=== PATIENT | male | born 1980 | race Caucasian/White ===

== ENCOUNTER 2018-02-01 02:07 | Emergency (ER) | payer SELFPAY ==
[2018-02-01 03:09] VITALS: BMI 33.4
[2018-02-01] MEDS ORDERED: SODIUM CHLORIDE 1,000 ML IV STA (04:57)
--- NOTE | 2018-02-01 04:57 | PDOC ---
History of Present Illness - History of Present Illness Initial Comments: Patient is a 37 year old israeli-speaking male, who presents to the ED complaining of 2 days of tactile fever, vomiting, body aches, and dizziness. Patient explains that his symptoms began when he suddenly began feeling dizzy while driving. He denies abdominal pain, dysuria, diarrhea, or sore throat. Denies recent travel, sick contacts, or changes in diet Surgical Hx: appendectomy, back surgery (2013) 02/01/18 05:45 <Mariana Kaufman - Last Filed: 02/01/18 06:17> - General History Source: Patient Exam Limitations: No Limitations <Cyndee Das - Last Filed: 02/03/18 16:45> - General Chief Complaint: Nausea/Vomiting Stated Complaint: FEVER, VOMITING Time Seen by Provider: 02/01/18 04:56 Past History <Mariana Kaufman - Last Filed: 02/01/18 06:17> - Suicide/Smoking/Psychosocial Hx Smoking History: Never smoked Have you smoked in the past 12 months: No Information on smoking cessation initiated: No Hx Alcohol Use: No Drug/Substance Use Hx: No <Cyndee Das - Last Filed: 02/03/18 16:45> - Past Medical History Allergies/Adverse Reactions: Allergies Allergy/AdvReac Type Severity Reaction Status Date / Time No Known Allergies Allergy Verified 02/01/18 03:09 Home Medications: Ambulatory Orders NK [No Known Home Medication] 02/01/18 Review of Systems - Review of Systems Comments:: GENERAL/CONSTITUTIONAL: +fever, chills, weakness.. HEAD, EYES, EARS, NOSE AND THROAT: No: change in vision, ear pain, discharge, sore throat, throat swelling. CARDIOVASCULAR: No: chest pain, lightheadedness, palpitations, syncope RESPIRATORY: No: cough, shortness of breath, wheezing, hemoptysis, stridor. GASTROINTESTINAL: +nausea, +vomiting. No: abdominal cramping, diarrhea, rectal bleeding, constipation. GENITOURINARY: No: dysuria, hematuria, frequency, urgency, flank pain. MUSCULOSKELETAL: No: back pain, neck pain, joint pain, muscle swelling or pain SKIN: No: lesions, pallor, rash or easy bruising. NEUROLOGIC: No: headache, vertigo, paresthesias, weakness ENDOCRINE: No: unexplained weight gain or loss HEMATOLOGIC/LYMPHATIC: No: anemia, easy bleeding, swelling nodes 02/01/18 05:46 <Mariana Kaufman - Last Filed: 02/01/18 06:17> *Physical Exam - Vital Signs Last Vital Signs Temp Pulse Resp BP Pulse Ox 102.1 F H 102 H 18 118/72 98 02/01/18 03:07 02/01/18 03:07 02/01/18 03:07 02/01/18 03:07 02/01/18 03:07 - Physical Exam Comments: GENERAL: The patient looks uncomfortable HEAD: Normal with no signs of trauma. EYES: PERRLA, EOMI, b/l conjunctivitis. ENT: Ears normal, nares patent, oropharynx clear without exudates. Moist mucous membranes. NECK: Normal range of motion, supple without lymphadenopathy, JVD, or masses. LUNGS: Breath sounds equal, clear to auscultation bilaterally. No wheezes, and no crackles. HEART:Tachycardic. Regular rate and rhythm, normal S1 and S2 without murmur, rub or gallop. ABDOMEN: Soft, nontender, normoactive bowel sounds. No guarding, no rebound. EXTREMITIES: Normal range of motion, no edema. No clubbing or cyanosis. No erythema, or tenderness. NEUROLOGICAL: Cranial nerves II through XII grossly intact. Normal speech. No focal neurological deficits. MUSCULOSKELETAL: Back nontender to palpation, no CVA tenderness SKIN: Warm, Dry, normal turgor, no rashes or lesions noted. <Mariana Kaufman - Last Filed: 02/01/18 06:17> - Vital Signs Last Vital Signs Temp Pulse Resp BP Pulse Ox 102.1 F H 102 H 18 118/72 98 02/01/18 03:07 02/01/18 03:07 02/01/18 03:07 02/01/18 03:07 02/01/18 03:07 <Cyndee Das - Last Filed: 02/03/18 16:45> ED Treatment Course - LABORATORY CBC & Chemistry Diagram: 02/01/18 05:28 02/01/18 05:28 <Mariana Kaufman - Last Filed: 02/01/18 06:17> - LABORATORY CBC & Chemistry Diagram: 02/01/18 05:28 02/01/18 05:28 <Cyndee Das - Last Filed: 02/03/18 16:45> Medical Decision Making - Medical Decision Making 02/03/18 16:42 Mr Bynum is a 37 yo M who presented to the ER with a complaint of fever, myalgias, nausea Pt has had fevers for 2 days HE has also noted vomiting, dizziness No diarrhea No recent travel No ill contacts No arthropod bites He actually denies abdominal pain Denies dysuria, diarrhea, or sore throat. Surgical Hx: appendectomy, back surgery (2013) On examination: Pt is ill appearing Tachycardiac Lungs are clear No abdominal tenderness at all Will do: LAbs UA CXR Flu swab Hydrate Anti pyretic Re assess Pt signed out to Dr Guadalupe <Cyndee Das - Last Filed: 02/03/18 16:45> *DC/Admit/Observation/Transfer - Attestations Scribe Attestion: 02/01/18 05:49 Documentation prepared by Mariana Kaufman, acting as medical technologist blood bank for Cyndee Das MD. <Mariana Kaufman - Last Filed: 02/01/18 06:17> <Cyndee Das - Last Filed: 02/03/18 16:45> Diagnosis at time of Disposition: Viral syndrome - Discharge Dispostion Disposition: HOME Condition at time of disposition: Fair - Patient Instructions Printed Discharge Instructions: DI for Viral Syndrome, DI for Nausea -- Adult Additional Instructions: As discussed, follow-up with your primary doctor within 2-3 days. Make sure your primary doctor repeats your urine test as you had some blood in your urine test here in the emergency department. Drink plenty of fluids and stay hydrated. Return to the emergency department if you have any new, worsening or concerning symptoms. Print Language: MAORI
[2018-02-01] MEDS ORDERED: ONDANSETRON 4 MG/2 ML VIAL IVPUSH ONE (04:58)
[2018-02-01] MEDS ORDERED: IBUPROFEN 800 MG/8 ML IJ IVPB ONE ×2 (04:58→05:40)
[2018-02-01 05:37] LABS: URINE APPEARANCE CLEAR; URINE BILIRUBIN NEGATIVE (<2.0 mg/dL); URINE COLOR YELLOW; URINE GLUCOSE (UA) NEGATIVE (NEGATIVE); URINE KETONE TRACE (NEGATIVE); URINE LEUK ESTERASE NEGATIVE (NEGATIVE); URINE NITRITE NEGATIVE (NEGATIVE); URINE UROBILINOGEN 4.0 E.U/dl mg/dL (0.2-1.0)
[2018-02-01] MEDS ORDERED: ONDANSETRON 4 MG/2 ML VIAL ONE (05:40)
[2018-02-01 05:47] LABS: BASO % 0.3 % (0-2.0); EOS % 0.1 % (0-4.5); HEMATOCRIT 48.1 % (35.4-49); HEMOGLOBIN 16.4 GM/dL (11.7-16.9); MCH 31.6 pg (25.7-33.7); MCHC 34.1 g/dl (32.0-35.9); MEAN CELL VOLUME 92.9 fl (80-96); MEAN PLT VOLUME 8.6 fl (7.5-11.1); MONO % 17.6 % (3.8-10.2); PLATELET COUNT 197 K/MM3 (134-434); RBC 5.18 M/mm3 (4.00-5.60); RDW 13.3 % (11.9-15.9); WHITE BLOOD COUNT 6.9 K/mm3 (4.0-10.0)
[2018-02-01 05:51] LABS: URINE PROTEIN 1+ (NEGATIVE)
[2018-02-01 05:56] LABS: VENOUS PC02 41.6 mmHg (38-52); VENOUS PH 7.34 (7.32-7.42)
[2018-02-01 05:57] LABS: VENOUS PO2 40.8 mmHg (28-48)
[2018-02-01 05:58] LABS: EPI CELLS RARE /HPF (FEW); URINE MUCUS MODERATE
[2018-02-01 06:02] LABS: INR 1.1 (0.82-1.09); PROTHROMBIN TIME (PATIENT) 12.4 SEC (9.7-13.0)
[2018-02-01 06:05] LABS: ACTIVATED PTT 28.8 SECONDS (26.9-34.4)
[2018-02-01 06:12] LABS: ALK PHOS 129 U/L (45-117); ANION GAP 7 (8-16); BILIRUBIN,TOTAL 0.8 mg/dL (0.2-1.0); BLOOD UREA NITROGEN 18 mg/dL (7-18); CALCIUM 8.7 mg/dL (8.5-10.1); CHLORIDE 106 mmol/L (98-107); CO2 25 mmol/L (21-32); CREATININE 1.2 mg/dL (0.7-1.3); GLUCOSE,RANDOM 94 mg/dL (74-106); POTASSIUM 4.2 mmol/L (3.5-5.1); SGOT/AST 32 U/L (15-37); SGPT/ALT 41 U/L (12-78); SODIUM 138 mmol/L (136-145); TOT PROT 7.3 g/dl (6.4-8.2)
[2018-02-01 07:10] VITALS: BP 111/75; PULSE 80; TEMP 99.5
[2018-02-01 08:05] LABS: AMYLASE 46 U/L (25-115); LIPASE 139 U/L (73-393)
--- NOTE | 2018-02-01 08:13 | PDOC ---
*Physical Exam - Vital Signs Last Vital Signs Temp Pulse Resp BP Pulse Ox 99.5 F 80 16 111/75 100 02/01/18 07:10 02/01/18 07:10 02/01/18 07:10 02/01/18 07:10 02/01/18 07:10 - Physical Exam Comments: 02/01/18 08:07 Care received at 0700 Briefly, pt presents with fever, vomiting, body aches, and lightheadedness Work up reveals mild leukocytosis, otherwise normal labs UA with RBCs but no evidence of infection CXR clear on my read Likely viral syndrome Pt feels better, tolerating PO and requesting DC Pt has PMD to follow up with, advised him to have a rpt UA due to blood in the urine here. Is clinicially well appearing, rpt vitals wnl - will DC I discussed the physical exam findings, ancillary test results and final diagnoses with the patient. I answered all of the patient's questions. The patient was satisfied with the care received and felt comfortable with the discharge plan and treatment plan. The patient will call their primary care physician within 24 hours to arrange follow-up and will return to the Emergency Department with any new, persistent or worsening symptoms. ED Treatment Course - LABORATORY CBC & Chemistry Diagram: 02/01/18 05:28 02/01/18 05:28 - ADDITIONAL ORDERS Additional order review: Laboratory Results 02/01/18 02/01/18 02/01/18 05:28 05:28 05:28 PT with INR INR PTT (Actin FS) VBG pH 7.34 POC VBG pCO2 41.6 POC VBG pO2 40.8 Mixed VBG HCO3 22.0 Sodium 138 Potassium 4.2 Chloride 106 Carbon Dioxide 25 Anion Gap 7 L BUN 18 Creatinine 1.2 Creat Clearance w eGFR > 60 Random Glucose 94 Lactic Acid 0.8 Calcium 8.7 Total Bilirubin 0.8 AST 32 ALT 41 Alkaline Phosphatase 129 H Total Protein 7.3 Albumin 4.0 Urine Color Urine Appearance Urine pH Ur Specific [place] Urine Protein Urine Glucose (UA) Urine Ketones Urine Blood Urine Nitrite Urine Bilirubin Urine Urobilinogen Ur Leukocyte Esterase Urine WBC (Auto) Urine RBC (Auto) Ur Epithelial Cells Urine Mucus 02/01/18 02/01/18 05:28 05:20 PT with INR 12.40 INR 1.10 PTT (Actin FS) 28.8 VBG pH POC VBG pCO2 POC VBG pO2 Mixed VBG HCO3 Sodium Potassium Chloride Carbon Dioxide Anion Gap BUN Creatinine Creat Clearance w eGFR Random Glucose Lactic Acid Calcium Total Bilirubin AST ALT Alkaline Phosphatase Total Protein Albumin Urine Color Yellow Urine Appearance Clear Urine pH 6.0 Ur Specific [place] 1.029 Urine Protein 1+ H Urine Glucose (UA) Negative Urine Ketones Trace H Urine Blood 1+ H Urine Nitrite Negative Urine Bilirubin Negative Urine Urobilinogen 4.0 e.u/dl Ur Leukocyte Esterase Negative Urine WBC (Auto) 2 Urine RBC (Auto) 54 Ur Epithelial Cells Rare Urine Mucus Moderate 02/01/18 05:28 RBC 5.18 MCV 92.9 MCHC 34.1 RDW 13.3 MPV 8.6 Neutrophils % 61.0 Lymphocytes % 21.0 Monocytes % 17.6 H Eosinophils % 0.1 Basophils % 0.3 - Medications Given in the ED: ED Medications Discontinued Medications Generic Name Dose Route Start Last Admin Trade Name Freq PRN Reason Stop Dose Admin Sodium Chloride 1,000 mls @ 1,000 mls/hr 02/01/18 04:57 02/01/18 05:36 Normal Saline - IV 02/01/18 05:56 1,000 mls/hr ASDIR STA Administration Ibuprofen 800 mg 02/01/18 04:58 02/01/18 05:48 Caldolor Injection - IVPB 02/01/18 04:59 800 mg ONCE ONE Administration Ondansetron HCl 4 mg 02/01/18 04:58 02/01/18 05:48 Zofran Injection IVPUSH 02/01/18 04:59 4 mg ONCE ONE Administration *DC/Admit/Observation/Transfer Diagnosis at time of Disposition: Viral syndrome - Discharge Dispostion Disposition: HOME Condition at time of disposition: Fair Decision to Admit order: No - Referrals - Patient Instructions Printed Discharge Instructions: DI for Nausea -- Adult, DI for Viral Syndrome Additional Instructions: As discussed, follow-up with your primary doctor within 2-3 days. Drink plenty of fluids and stay hydrated. Return to the emergency department if you have any new, worsening or concerning symptoms. - Post Discharge Activity - Attestations Physician Attestion: 02/01/18 08:14 I, Dr. Brandyn Guadalupe MD, attest that this document has been prepared under my direction and personally reviewed by me in its entirety. I further attest, that it accurately reflects all work, treatment, procedures and medical decision -making performed by me.
== END 2018-02-01 08:45 | disposition home or self-care (01) ==
LOC: JER 02:07
PROC: 3E033GC Introduction of Other Therapeutic Substance into Peripheral Vein, Percutaneous Approach (ICD-10-PCS; principal; 2018-02-01)
PROC: 3E0337Z Introduction of Electrolytic and Water Balance Substance into Peripheral Vein, Percutaneous Approach (ICD-10-PCS; 2018-02-01)
DX: B34.9 Viral infection, unspecified (principal)
CPT/HCPCS: 36415; 71045-TC-FY; 80053; 81003; 81015; 82150; 82803; 83605; 83690; 85025; 85610; 85730; 87040; 87086; 87804; 99282-25; J7030

== ENCOUNTER 2018-03-29 09:47 | Emergency (ER) | payer SELFPAY ==
[2018-03-29 09:59] VITALS: BP 124/70; PULSE 67; TEMP 98.5; BMI 34.8
[2018-03-29] MEDS ORDERED: KETOROLAC TROMETHAMINE 30 MG/1 ML VIAL IM ONE (10:33)
[2018-03-29] MEDS ORDERED: KETOROLAC TROMETHAMINE 60 MG/2 ML VIAL ONE (10:46)
--- NOTE | 2018-03-29 10:58 | PDOC ---
History of Present Illness - General Chief Complaint: Back Pain Stated Complaint: BACK PAIN Time Seen by Provider: 03/29/18 10:23 - History of Present Illness Initial Comments: 03/29/18 10:34 CHIEF COMPLAINT: back pain HISTORY OF PRESENT ILLNESS: 37 yo M with no PMH presents to fast track with low back pain. Patient states he [place] "[place]" [place] and recently he has had some exacerbation of the pain radiating to his left leg. He denies any loss of bowel or bladder function, loss of sensation to b/l LE, and is fully ambulatory. PAST MEDICAL HISTORY: Denies past medical history FAMILY HISTORY: Denies SOCIAL HISTORY: Denies tobacco, alcohol, illicit drug use. SURGICAL HISTORY: Denies ALLERGIES: No known drug allergies REVIEW OF SYSTEMS General/Constitutional: Denies fever or chills. Denies weakness, weight change. HEENT: Denies change in vision. Denies ear pain or discharge. Denies sore throat. Cardiovascular: Denies chest pain or shortness of breath. Respiratory: Denies cough, wheezing, or hemoptysis. Gastrointestinal: Denies nausea, vomiting, diarrhea or constipation. Denies rectal bleeding. Genitourinary: Denies dysuria, frequency, or change in urination. Musculoskeletal: Low back pain radiating to left leg. Skin and breasts: Denies rash or easy bruising. Neurologic: Denies headache, vertigo, loss of consciousness, or loss of sensation. PHYSICAL EXAM General Appearance: Well-appearing, appropriately dressed. No apparent distress. HEENT: EOMI, PERRLA. No conjunctival pallor. No photophobia, scleral icterus. Respiratory/Chest: Lungs CTAB. Cardiovascular: RRR. S1, S2. Gastrointestinal/Abdominal: Normal bowel sounds. Abdomen soft, non-distended. No tenderness or rebound tenderness. No organomegaly, pulsatile mass, guarding , hernia, hepatomegaly, splenomegaly. Musculoskeletal/Extremities: Left paraverterbral muscle spasm at L3-L5. Normal inspection. FROM of all extremities, normal capillary refill. Pelvis Stable. No CVA tenderness. No tenderness to extremities, pedal edema, swelling, erythema or deformity. Integumentary: Appropriate color, dry, warm. No cyanosis, erythema, jaundice or rash Neurologic: inspector open die II-XII intact. Fully oriented, alert. Appropriate mood/affect. Motor strength 5/5. No appreciable EOM palsy, facial droop or sensory deficit. Past History - Past Medical History Allergies/Adverse Reactions: Allergies Allergy/AdvReac Type Severity Reaction Status Date / Time No Known Allergies Allergy Verified 03/29/18 09:56 Home Medications: Ambulatory Orders Cyclobenzaprine HCl 10 mg PO HS PRN #10 tablet 03/29/18 Diclofenac Sodium 50 mg PO BID #20 tablet. 03/29/18 COPD: No - Surgical History Appendectomy: Yes - Immunization History Immunization Up to Date: No - Suicide/Smoking/Psychosocial Hx Smoking History: Never smoked Have you smoked in the past 12 months: No Hx Alcohol Use: No Drug/Substance Use Hx: No Substance Use Type: None *Physical Exam - Vital Signs Last Vital Signs Temp Pulse Resp BP Pulse Ox 98.5 F 67 18 124/70 99 03/29/18 09:56 03/29/18 09:56 03/29/18 09:56 03/29/18 09:56 03/29/18 09:56 *DC/Admit/Observation/Transfer Diagnosis at time of Disposition: Low back pain - Discharge Dispostion Disposition: HOME Condition at time of disposition: Stable Decision to Admit order: No - Prescriptions Prescriptions: Cyclobenzaprine HCl 10 mg PO HS PRN #10 tablet PRN Reason: Back Pain Diclofenac Sodium 50 mg PO BID #20 tablet.dr - Referrals Referrals: Rafael Rowe MD [Staff Physician] - - Patient Instructions Printed Discharge Instructions: DI for Low Back Pain Additional Instructions: Please take medications as prescribed; do NOT drink alcohol, drive, or operate machinery while taking cyclobenzaprine. If you develop any loss of sensation to your legs, loss of bowel or bladder function, or are unable to walk, please return to the ER immediately. Por favor tome los medicamentos segn lo recetado; NO tome alcohol, conduzca ni maneje maquinaria mientras scottie cyclobenzaprine. Si presenta prdida de sensibilidad en las piernas, prdida de la funcin intestinal o de la vejiga o no puede caminar, regrese a la tru de emergencias inmediatamente. - Post Discharge Activity Forms/Work/School Notes: Back to Work
== END 2018-03-29 11:06 | disposition home or self-care (01) ==
LOC: JERFT 09:47
PROC: 3E0233Z Introduction of Anti-inflammatory into Muscle, Percutaneous Approach (ICD-10-PCS; principal; 2018-03-29)
DX: M54.5 Low back pain (principal)
CPT/HCPCS: 99281-25

== ENCOUNTER 2019-07-17 09:24 | Emergency (ER) | payer SELFPAY ==
[2019-07-17 09:42] VITALS: BP 114/66; PULSE 64; TEMP 98.5; BMI 34.9
[2019-07-17] MEDS ORDERED: METHOCARBAMOL 500 MG TABLET PO ONE (10:04)
[2019-07-17] MEDS ORDERED: KETOROLAC TROMETHAMINE 60 MG/2 ML VIAL IM ONE (10:04)
[2019-07-17] MEDS ORDERED: KETOROLAC TROMETHAMINE 60 MG/2 ML VIAL ONE (10:06)
[2019-07-17] MEDS ORDERED: METHOCARBAMOL 500 MG TABLET ONE (10:06)
[2019-07-17] MEDS ORDERED: LIDOCAINE 5% TOPICAL PATCH TP ONE (10:15)
[2019-07-17] MEDS ORDERED: LIDOCAINE 5% TOPICAL PATCH ONE (10:16)
--- NOTE | 2019-07-17 10:19 | PDOC ---
History of Present Illness - General Chief Complaint: Back Pain Stated Complaint: LOWER BACK PAIN Time Seen by Provider: 07/17/19 10:01 History Source: Patient Exam Limitations: Clinical Condition - History of Present Illness Initial Comments: 07/17/19 10:16 Patient with past medical history of herniated disc status post lumpectomy 3 years ago for sciatica presented with complaint of 3-day history of worsening right lower back pain which has been worsening and not improving with Aleve. 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 Denies numbness or tingling sensation. Denies urinary or fecal incontinence. Denies saddle paresthesia. Patient reported increased pain when getting up from sitting position Occurred: reports: other (3 days) Severity: reports: moderate Pain Location: reports: back Past History - Past Medical History Allergies/Adverse Reactions: Allergies Allergy/AdvReac Type Severity Reaction Status Date / Time No Known Allergies Allergy Verified 07/17/19 09:39 Home Medications: Ambulatory Orders Cyclobenzaprine HCl 10 mg PO HS PRN #10 tablet 03/29/18 Diclofenac Sodium 50 mg PO BID #20 tablet. 03/29/18 Lidocaine Patch Removal [Lidoderm Patch Removal] 1 each MC DAILY PRN #30 each Methocarbamol [Robaxin -] 500 mg PO TID PRN #21 tablet 07/17/19 Naproxen 500 mg PO BID PRN #20 tablet 07/17/19 COPD: No - Surgical History Appendectomy: Yes - Immunization History Immunization Up to Date: No - Psycho Social/Smoking Cessation Hx Smoking History: Never smoked Have you smoked in the past 12 months: No Hx Alcohol Use: No Drug/Substance Use Hx: No Substance Use Type: None Review of Systems - Review of Systems Able to Perform ROS?: Yes Is the patient limited German proficient: No Constitutional: No: Malaise, Weakness HEENTM: No: Symptoms Reported Respiratory: No: Symptoms reported Cardiac (ROS): No: Symptoms Reported ABD/GI: No: Symptoms Reported : No: Symptoms Reported, Burning, Dysuria, Discharge, Frequency, Urgency, Testicular Mass, Testicular Swelling, Testicular Pain Musculoskeletal: Yes: Symptoms Reported, See HPI, Back Pain (right lower back), Muscle Pain (lower back pain). No: Muscle Weakness Integumentary: No: Symptoms Reported Neurological: No: Symptoms reported, Numbness, Paresthesia, Tingling All Other Systems: Reviewed and Negative *Physical Exam - Vital Signs Last Vital Signs Temp Pulse Resp BP Pulse Ox 98.5 F 64 18 114/66 100 07/17/19 09:40 07/17/19 09:40 07/17/19 09:40 07/17/19 09:40 07/17/19 09:40 - Physical Exam Comments: 07/17/19 10:25 GENERAL: Well developed, well nourished. Awake and alert in moderate acute distress. CARDIOVASCULAR: Regular rate and rhythm. No murmurs, rubs, or gallops. PULMONARY: No evidence of respiratory distress. MUSCULOSKELETAL : mild tenderness over posterior paravertebral muscle of lumbosacral spine of L3-S1 on right sides. No bony deformities SKIN: Warm and dry. Normal capillary refill. NEUROLOGICAL: Alert, awake, appropriate. No motor deficits in the lower extremities. Gait is normal without ataxia. PSYCHIATRIC: Cooperative. Good eye contact. Appropriate mood and affect. General Appearance: Yes: Nourished, Appropriately Dressed, Apparent Distress, Moderate Distress ED Treatment Course - Medications Given in the ED: ED Medications Discontinued Medications Generic Name Dose Route Start Last Admin Trade Name Freq PRN Reason Stop Dose Admin Ketorolac Tromethamine 60 mg 07/17/19 10:04 07/17/19 10:13 Toradol Injection - IM 07/17/19 10:05 60 mg ONCE ONE Administration Methocarbamol 500 mg 07/17/19 10:04 07/17/19 10:13 Robaxin - PO 07/17/19 10:05 500 mg ONCE ONE Administration Medical Decision Making - Medical Decision Making 07/17/19 10:18 Patient with past medical history of herniated disc status post lumpectomy 3 years ago for sciatica presented with complaint of 3-day history of worsening right lower back pain which has been worsening and not improving with Aleve. 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 Denies numbness or tingling sensation. Denies urinary or fecal incontinence. Denies saddle paresthesia. Patient reported increased pain when getting up from sitting position Exam significant for moderate tenderness to right paravertebral muscle of lower lumbosacral spine of L3-S1 which is worse with external rotation of the hip to the left. Symptoms likely back spasm. Toradol 60 mg IM ordered for pain and Robaxin 500 mg ordered for spasm. Topical lidocaine patch ordered for pain. Patient stable for discharge on Robaxin. For spasm and p.o. Toradol as needed for pain with orthopedic spine follow-up Discharge - Discharge Information Problems reviewed: Yes Clinical Impression/Diagnosis: Low back pain Qualifiers: Chronicity: chronic Back pain laterality: right Sciatica presence: without sciatica Qualified Code(s): M54.5 - Low back pain Condition: Improved Disposition: HOME - Admission No - Additional Discharge Information Prescriptions: Lidocaine Patch Removal [Lidoderm Patch Removal] 1 each MC DAILY PRN #30 each PRN Reason: Back Pain Methocarbamol [Robaxin -] 500 mg PO TID PRN #21 tablet PRN Reason: Back Pain Naproxen 500 mg PO BID PRN #20 tablet PRN Reason: Back Pain - Follow up/Referral Referrals: Jose Jones MD, [facility] [Staff Physician] - - Patient Discharge Instructions Patient Printed Discharge Instructions: DI for Back Spasm, DI for Lumbar Radiculopathy Additional Instructions: Take prescribed medication as needed for pain and spasm. Apply hot compress to low back 2-3 times a day as needed for pain. Follow-up with referred orthopedic radiological health specialist if no improvement in 3 days for possible MRI - Post Discharge Activity
[2019-07-17] MEDS ORDERED: LIDOCAINE PATCH REMOVAL MC SCH (22:00)
== END 2019-07-17 10:42 | disposition home or self-care (01) ==
LOC: JERFT 09:24
PROC: 3E0233Z Introduction of Anti-inflammatory into Muscle, Percutaneous Approach (ICD-10-PCS; principal; 2019-07-17)
DX: M54.5 Low back pain (principal); Z87.39 Personal history of other diseases of the musculoskeletal system and connective tissue
CPT/HCPCS: 99282-25

== ENCOUNTER 2019-08-30 14:39 | Emergency (ER) | payer SELFPAY ==
[2019-08-30 14:43] VITALS: BP 123/76; PULSE 100; TEMP 98; BMI 36.1
--- NOTE | 2019-08-30 15:48 | PDOC ---
History of Present Illness - General Chief Complaint: Ingrown toenail Stated Complaint: PAIN Time Seen by Provider: 08/30/19 15:17 History Source: Patient - History of Present Illness Initial Comments: 08/30/19 15:47 38 year old male c/o left 2nd toe nail infection and swelling for the last 3 days. denies fever/ chills. reports cutting toe nails short 08/30/19 15:54 Past History - Past Medical History Allergies/Adverse Reactions: Allergies Allergy/AdvReac Type Severity Reaction Status Date / Time No Known Allergies Allergy Verified 08/30/19 14:43 Home Medications: Ambulatory Orders Cyclobenzaprine HCl 10 mg PO HS PRN #10 tablet 03/29/18 Diclofenac Sodium 50 mg PO BID #20 tablet. 03/29/18 Lidocaine Patch Removal [Lidoderm Patch Removal] 1 each MC DAILY PRN #30 each Methocarbamol [Robaxin -] 500 mg PO TID PRN #21 tablet 07/17/19 Naproxen 500 mg PO BID PRN #20 tablet 07/17/19 COPD: No - Surgical History Appendectomy: Yes - Immunization History Immunization Up to Date: No - Psycho Social/Smoking Cessation Hx Smoking History: Never smoked Have you smoked in the past 12 months: No Hx Alcohol Use: No Drug/Substance Use Hx: No Substance Use Type: None Review of Systems - Review of Systems Able to Perform ROS?: Yes Is the patient limited Welsh proficient: No Integumentary: Yes: Other (toenail pain) *Physical Exam - Vital Signs Last Vital Signs Temp Pulse Resp BP Pulse Ox 98 F 100 H 18 123/76 99 08/30/19 14:40 08/30/19 14:40 08/30/19 14:40 08/30/19 14:40 08/30/19 14:40 - Physical Exam General Appearance: Yes: Appropriately Dressed Extremity: positive: Other (left 2nd toe nail swelling. with erythema) Integumentary: positive: Normal Color, Dry, Warm Neurologic: positive: Fully Oriented, Alert, Normal Mood/Affect ED Progress Note - Progress Note Progress Note: 08/30/19 15:55 A: paronychia of toes P: drained a small amount of serous fluid Discharge - Discharge Information Problems reviewed: Yes Clinical Impression/Diagnosis: Paronychia of toe of left foot Disposition: HOME - Follow up/Referral Referrals: Alon Grossman DPM [Staff Physician] - Call tomorrow Moy Carrizales DPM [Staff Physician] - Call tomorrow - Patient Discharge Instructions Patient Printed Discharge Instructions: DI for Ingrown Toenail Additional Instructions: soak with warm water three to four times daily follow up with an registered dietetic technician as soon as possible take antibiotics as prescribed remojar con agua tibia swathi o cuatro veces al da seguimiento con un podlogo lo antes posible carson antibiticos segn lo prescrito - Post Discharge Activity Work/Back to School Note: Back to Work
== END 2019-08-30 16:23 | disposition home or self-care (01) ==
LOC: JERFT 14:39
PROC: 0J9R0ZZ Drainage of Left Foot Subcutaneous Tissue and Fascia, Open Approach (ICD-10-PCS; principal; 2019-08-30)
DX: L03.032 Cellulitis of left toe (principal)
CPT/HCPCS: 99281-25

== ENCOUNTER 2020-04-21 11:10 | Emergency (ER) | payer OTHER ==
--- NOTE | 2020-04-21 11:21 | PDOC ---
Rapid Medical Evaluation Time Seen by Provider: 04/21/20 11:20 Medical Evaluation: Allergies Allergy/AdvReac Type Severity Reaction Status Date / Time No Known Allergies Allergy Verified 08/30/19 14:43 04/21/20 11:20 I have performed a brief in-person evaluation of this patient. The patient presents with a chief complaint of:L elbow pain, no trauma but states he lifts his daughter a lot. No pmhx Pertinent physical exam findings:stable I have ordered the following:nothing The patient will proceed to the ED for further evaluation. Discharge Disposition - Diagnosis Elbow pain Qualifiers: Laterality: left Qualified Code(s): M25.522 - Pain in left elbow - Referrals - Patient Instructions - Post Discharge Activity
[2020-04-21 11:22] VITALS: BP 109/76; PULSE 65; BMI 34.0
--- NOTE | 2020-04-21 11:55 | PDOC ---
History of Present Illness - General Chief Complaint: Pain Stated Complaint: LT ELBOW PAIN Time Seen by Provider: 04/21/20 11:20 - History of Present Illness Initial Comments: 04/21/20 11:52 39-year-old male without comorbidities presents for evaluation of atraumatic left elbow pain x1 week after heavy lifting Past History - Medical History Allergies/Adverse Reactions: Allergies Allergy/AdvReac Type Severity Reaction Status Date / Time No Known Allergies Allergy Verified 04/21/20 11:21 COPD: No - Surgical History Appendectomy: Yes - Immunization History Immunization Up to Date: No - Psycho-Social/Smoking History Smoking History: Never smoked Have you smoked in the past 12 months: No - Substance Abuse Hx (Audit-C & DAST Scrn) How often the patient has a drink containing alcohol: Never Score: In Men: 4 or > Positive; In Women: 3 or > Positive: 0 Screen Result (Pos requires Nsg. Audit-10AR): Negative In the last yr the pt used illegal drug/Rx for NonMed reason: No Score: Yes response is considered Positive: 0 Screen Result (Positive result requires Nsg. DAST-10): Negative Review of Systems - Review of Systems Constitutional: No: Chills, Fever, Night Sweats Musculoskeletal: Yes: Joint Pain *Physical Exam - Vital Signs Last Vital Signs Temp Pulse Resp BP Pulse Ox 65 18 109/76 98 04/21/20 11:21 04/21/20 11:21 04/21/20 11:21 04/21/20 11:21 - Physical Exam 04/21/20 11:52 Left elbow skin color and temperature normal range of motion is full and painful at terminal extension. Tenderness over the lateral epicondyle no other areas of tenderness no detectable instability pain increased over the lateral epicondyle with resisted wrist flexion. Normal range of motion of the forearm wrist and shoulder. Neurovascular intact no gross sensorimotor deficits. ED Treatment Course - RADIOLOGY Radiology Studies Ordered: Category Date Time Status ELBOW-LEFT [RAD] Stat Radiology 04/21/20 11:30 Taken Medical Decision Making - Medical Decision Making 04/21/20 11:53 X-rays of the left elbow show no evidence of fracture trauma or destructive process. Left elbow lateral epicondylitis Cock-up wrist splint follow-up with orthopedic surgery discussed use of Motrin for pain and rest. Discharge - Discharge Information Problems reviewed: Yes Clinical Impression/Diagnosis: Lateral epicondylitis, left elbow Elbow pain Qualifiers: Laterality: left Qualified Code(s): M25.522 - Pain in left elbow Condition: Stable Disposition: HOME - Admission No - Follow up/Referral Referrals: Steve Silva DO [Staff Physician] - - Patient Discharge Instructions Additional Instructions: Please take the Motrin as directed. You may also take Tylenol as directed. Return to the emergency room for worsening symptoms and without fail follow-up with orthopedic surgery in 1 to 2 days for further evaluation and treatment options. - Post Discharge Activity Work/Back to School Note: Back to Work
== END 2020-04-21 12:16 | disposition home or self-care (01) ==
LOC: JERFT 11:10
DX: M25.552 Pain in left hip (principal)
CPT/HCPCS: 73070-TC-LT-FY; 99283-25

== ENCOUNTER 2020-05-18 13:19 | Emergency (ER) | payer OTHER ==
[2020-05-18 13:22] VITALS: BP 114/74; PULSE 71; TEMP 97.6; BMI 34.0
[2020-05-18] MEDS ORDERED: diazePAM 5 MG TABLET PO ONE (13:53)
--- NOTE | 2020-05-18 14:08 | PDOC ---
History of Present Illness - General Chief Complaint: Pain Stated Complaint: LOWER BACK PAIN History Source: Patient Exam Limitations: No Limitations - History of Present Illness Initial Comments: 05/18/20 13:55 Patient is a 39-year-old male with history of appendectomy, disc disease lumbar spine, mass spine, tennis elbow here with complaints of lower back pain started 2 days ago. States his pain is sharp, shooting, 9/10 aggravated with walking. He has been treating herself with Motrin last dose was 3 hours ago with no relief of symptoms. He denies any bowel or bladder incontinence, no saddle an esthesia. No testicular pain. No fever, chills. States 7 years ago he had surgery on his back for disc disease and to remove a mass on his spine. PMD: PMHX: as above PSOCHX: ALL: NKDA GENERAL/CONSTITUTIONAL: [No fever or chills. No weakness. No weight change.] HEAD, EYES, EARS, NOSE AND THROAT: [No change in vision. No ear pain or discharge. No sore throat.] GASTROINTESTINAL: [No nausea, vomiting, diarrhea or constipation. No rectal bleeding.] GENITOURINARY: [No dysuria, frequency, or change in urination.] MUSCULOSKELETAL: [(+) joint or muscle swelling or pain. No neck (+) back pain.] SKIN AND BREASTS: [No rash or easy bruising.] HEMATOLOGIC/LYMPHATIC: [No anemia, easy bleeding, or history of blood clots.] ALLERGIC/IMMUNOLOGIC: [No hives or skin allergy. No latex allergy.] GENERAL: [The patient is awake, alert, and fully oriented, in no acute distress.] HEAD: [Normal with no signs of trauma.] EYES: [Pupils equal, round and reactive to light, extraocular movements intact, sclera anicteric, conjunctiva clear.] ENT: [Ears normal, nares patent, oropharynx clear without exudates. Moist mucous membranes.] NECK: [Normal range of motion, supple without lymphadenopathy, JVD, or masses.] LUNGS: [Breath sounds equal, clear to auscultation bilaterally. No wheezes, and no crackles.] HEART: [Regular rate and rhythm, normal S1 and S2 without murmur, rub.] ABDOMEN: [Soft, nontender, normoactive bowel sounds. No guarding, no rebound. No masses.] EXTREMITIES: [Normal range of motion, no edema. No clubbing or cyanosis. No cords, erythema, or tenderness.] BACK: tenderness midline lumbar since over the surgical scar, NEUROLOGICAL: [Cranial nerves II through XII grossly intact. Normal speech, normal gait, 5/5 strength b/l lower ext] PSYCH: [Normal mood, normal affect.] SKIN: [Warm, Dry, normal turgor, no rashes or lesions noted.] Past History - Medical History Allergies/Adverse Reactions: Allergies Allergy/AdvReac Type Severity Reaction Status Date / Time No Known Allergies Allergy Verified 05/18/20 13:22 Home Medications: Ambulatory Orders Ibuprofen [Motrin -] 600 mg PO TID #30 tablet 04/21/20 Cyclobenzaprine HCl [Flexeril -] 10 mg PO TID #21 tablet 05/18/20 Oxycodone HCl/Acetaminophen [Percocet 5/325 -] 1 tab PO Q4H #20 tablet MDD 6 05/18/20 COPD: No - Surgical History Appendectomy: Yes - Immunization History Immunization Up to Date: No - Psycho-Social/Smoking History Smoking History: Never smoked Have you smoked in the past 12 months: No - Substance Abuse Hx (Audit-C & DAST Scrn) How often the patient has a drink containing alcohol: Never Score: In Men: 4 or > Positive; In Women: 3 or > Positive: 0 Screen Result (Pos requires Nsg. Audit-10AR): Negative *Physical Exam - Vital Signs Last Vital Signs Temp Pulse Resp BP Pulse Ox 97.6 F 71 18 114/74 99 05/18/20 13:20 05/18/20 13:20 05/18/20 13:20 05/18/20 13:20 05/18/20 13:20 ED Treatment Course - RADIOLOGY Radiology Studies Ordered: Category Date Time Status LUMBAR SPINE CT W/O CONTRAST [CT] Stat CT Scan 05/18/20 13:53 Ordered Medical Decision Making - Medical Decision Making 05/18/20 13:55 Patient is a 39-year-old male with history of appendectomy, disc disease lumbar spine, mass spine, tennis elbow here with complaints of lower back pain started 2 days ago. States his pain is sharp, shooting, 9/10 aggravated with walking. He has been treating herself with Motrin last dose was 3 hours ago with no relief of symptoms. He denies any bowel or bladder incontinence, no saddle anesthesia. No testicular pain. No fever, chills. States 7 years ago he had surgery on his back for disc disease and to remove a mass on his spine. Symptoms consistent with a lumbar radiculopathy however since the patient had surgery and mass excised will get a CAT scan r/o significant pathology. Percocet 1 tab and Valium [address] scan resulted shows herniated disks at L5-S1, L4-L5, and partial laminectomy at L5. Spoke with states that patient has a back specialist. Was instructed to follow-up with his back specialist. I discussed the physical exam findings, ancillary test results and final diagnoses with the patient. I answered all of the patient's questions. The patient was satisfied with the care received and felt comfortable with the discharge plan and treatment plan. The Patient agrees to follow up with the primary care physician within 24-72 hours. Discharge - Discharge Information Problems reviewed: Yes Clinical Impression/Diagnosis: Lumbar radiculopathy Condition: Stable Disposition: HOME - Additional Discharge Information Prescriptions: Cyclobenzaprine HCl [Flexeril -] 10 mg PO TID #21 tablet Oxycodone HCl/Acetaminophen [Percocet 5/325 -] 1 tab PO Q4H #20 tablet MDD 6 - Follow up/Referral Referrals: Adriel Hearn MD [Primary Care Provider] - - Patient Discharge Instructions Patient Printed Discharge Instructions: DI for Lumbar Radiculopathy Additional Instructions: Your Discharge Instructions: You must call primary care physician within 24 hours to arrange follow-up. Return to the Emergency Department with any new, persistent or worsening symptoms, for fever, chills, SOB, dizziness or any other concerning changes that may occur. Follow-up with your Ortho/agronomy specialist in 1 to 2 days. Call for an appointment. Continue naproxen and a muscle relaxant for your pain. - Post Discharge Activity
[2020-05-18] MEDS ORDERED: diazePAM 5 MG TABLET ONE (14:20)
== END 2020-05-18 16:22 | disposition home or self-care (01) ==
LOC: JERFT 13:19
DX: M54.17 Radiculopathy, lumbosacral region (principal)
CPT/HCPCS: 72131-TC; 99284-25

== ENCOUNTER 2021-02-26 11:42 | Emergency (ER) | payer OTHER ==
[2021-02-26 11:49] VITALS: BP 107/69; PULSE 68; TEMP 98.3; BMI 34.0
[2021-02-26] MEDS ORDERED: LIDOCAINE 5% TOPICAL PATCH TP ONE (12:09)
[2021-02-26] MEDS ORDERED: KETOROLAC TROMETHAMINE 30 MG/1 ML VIAL IM ONE (12:09)
[2021-02-26] MEDS ORDERED: LIDOCAINE 5% TOPICAL PATCH ONE (12:17)
[2021-02-26] MEDS ORDERED: KETOROLAC TROMETHAMINE 30 MG/1 ML VIAL ONE (12:18)
[2021-02-26] MEDS ORDERED: LIDOCAINE PATCH REMOVAL MC ONE (22:00)
== END 2021-02-26 12:27 | disposition home or self-care (01) ==
LOC: JERFT 11:42
PROC: 3E0233Z Introduction of Anti-inflammatory into Muscle, Percutaneous Approach (ICD-10-PCS; principal; 2021-02-26)
DX: M54.42 Lumbago with sciatica, left side (principal)
CPT/HCPCS: 99284-25